=== PATIENT | male | born 2000 | race Caucasian/White ===

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

== ENCOUNTER 2018-08-09 13:18 | Emergency (ER) | payer OTHER ==
[2018-08-09 13:23] VITALS: BP 130/80; TEMP 96.6; BMI 26.2
--- NOTE | 2018-08-09 14:59 | ED.PDOC ---
General ED Provider: Dr. ARAMIS CHA Chief Complaint: Penile Problem Stated Complaint: had unprotected sex worried about std has no symptoms Time Seen by Physician: 13:19 Mode of Arrival: Walk-In Information Source: Patient Exam Limitations: No limitations Primary Care Provider: MANI MELENDEZ Nursing and Triage Documentation Reviewed and Agree: Yes Does patient meet sepsis criteria?: No System Inflammatory Response Syndrome: Not Applicable Sepsis Protocol: For patient's 13 years and over: Temp is 96.8 and below OR 101 and greater Pulse >90 BPM Resp >20/minute Acutely Altered Mental Status Are patient's symptoms suggestive of a new infection, such as: -Pneumonia -Skin, Soft Tissue -Endocarditis -UTI -Bone, Joint Infection -Implantable Device -Acute Abdominal Infection -Wound Infection -Meningitis -Blood Stream Catheter Infection -Unknown Complaint Exam - Complaint/Exam Onset/Duration: 10 days ago Current Severity: None Location of Pain: Reports: None Aggravating: Reports: None Alleviating: Reports: None Associated Signs and Symptoms: Denies: Diaphoresis, Back pain, Fever, Hematuria , Dysuria, Constipation, Blood in stool, Rectal pain, Appetite change, Nausea, Vomiting, Penile swelling, Penile discharge, Decreased urine output, Increased urine frequency, Increased thirst, Decreased activity, Lethargy, Scrotal pain, Scrotal swelling, Abdominal Pain Testicular Torsion Risk Factors: Reports: None Surgical Obstruction Risk Factors: Reports: None Related Surgical History: Reports: None Abdominal Findings: Present: None Review of Systems - Review Of Systems Constitutional: Reports: No symptoms Eyes: Reports: No symptoms Ears, Nose, Mouth, Throat: Reports: No symptoms Respiratory: Reports: No symptoms Cardiac: Reports: No symptoms GI: Reports: No symptoms : Reports: No symptoms Musculoskeletal: Reports: No symptoms Skin: Reports: No symptoms Neurological: Reports: No symptoms Endocrine: Reports: No symptoms Hematologic/Lymphatic: Reports: No symptoms All Other Systems: Reviewed and Negative Past Medical History - Past Medical History Previously Healthy: Yes Endocrine: Reports: None Cardiovascular: Reports: None Respiratory: Reports: None Hematological: Reports: None Gastrointestinal: Reports: None Genitourinary: Reports: None Neuro/Psych: Reports: None Musculoskeletal: Reports: None Cancer: Reports: None - Surgical History General Surgical History: Reports: None - Family History Family History: Reports: None - Social History Smoking Status: Never smoker Hx Substance Use: No Alcohol Screening: None Physical Exam - Physical Exam Appearance: Well-appearing, No pain distress, Well-nourished Eyes: MARIE, EOMI, Conjunctiva clear ENT: Ears normal, Nose normal, Oropharynx normal Respiratory: Airway patent, Breath sounds clear, Breath sounds equal, Respirations nonlabored Cardiovascular: RRR, Pulses normal, No rub, No murmur GI/: Soft, Nontender, No masses, Bowel sounds normal, No Organomegaly Musculoskeletal: Normal strength, ROM intact, No edema, No calf tenderness Skin: Warm, Dry, Normal color Neurological: Sensation intact, Motor intact, Reflexes intact, Cranial nerves intact, Alert, Oriented Psychiatric: Affect appropriate, Mood appropriate Critical Care Note - Critical Care Note Total Time (mins): 0 Course - Course Vital Signs: Temp Pulse Resp BP Pulse Ox 08/09/18 13:19 96.6 F L 62 18 130/80 97 Departure - Departure Time of Disposition: 14:58 Disposition: HOME SELF-CARE Discharge Problem: Normal exam Instructions: Safe Sex (ED), Sexually Transmitted Diseases (ED), Chlamydia (ED) , Trichomoniasis (ED), Molluscum Contagiosum (ED), Sexually Transmitted Diseases in Adolescents (ED), Safe Sex Practices for Adolescents (ED) Condition: Good Pt referred to PMD for follow-up: Yes IPMP verified?: No Additional Instructions: Please call your Family Physician as soon as possible to schedule a follow-up appointment. Allergies/Adverse Reactions: Allergies cefixime [From Suprax] Adverse Reaction (Verified 08/09/18 13:24) Home Medications: Ambulatory Orders 1 [No Reported Medications] 08/09/18
== END 2018-08-09 15:23 | disposition home or self-care (01) ==
LOC: ED 13:18
DX: Z11.3 Encounter for screening for infections with a predominantly sexual mode of transmission (principal)
CPT/HCPCS: 36415; 87389; 99282

== ENCOUNTER 2018-11-17 01:49 | Emergency (ER) ==
[2018-11-17 02:01] VITALS: BP 143/83; TEMP 97.6; BMI 26.7
--- NOTE | 2018-11-17 03:35 | CT ---
EXAM: CT soft tissue neck with intravenous contrast 10/21/2018. Sagittal and coronal reformatted im ages obtained HISTORY: Posterior neck mass COMPARISON: None. FINDINGS: The nasopharynx oropharynx show no acute abnormality. The parapharyngeal and retropharyng eal soft tissues appear within normal limits. The epiglottis is within normal limits. The laryngeal airway shows no acute abnormality. The trachea is widely patent and within the midline. The pulmonary apices are unremarkable. No neck mass identified. No superficial skin marker identified. The specific area of clinical estelita rn is uncertain. Small physiologic appearing lymph nodes are present throughout the neck. Small nodule likely represe nting a physiologic lymph node is present on image 42 along the left posterior aspect of the neck. C orrelate with physical examination. This may or may not correspond to the area of clinical concern. No acute osseous abnormality of the cervical spine. IMPRESSION: 1. No acute process identified within the soft tissues of the neck. 2. The airway remains widely patent and within the midline. There is no dominant mass or abscess. 3. Small physiologic appearing lymph nodes are present within both sides of the neck. Small nodule at the left posterior neck on image 42 likely represents small lymph node. The specific site of clin ical concern is uncertain. Please correlate with physical examination.
--- NOTE | 2018-11-17 03:45 | ED.PDOC ---
General ED Provider: Dr. REJI ZAMORA-ER Chief Complaint: Neck Pain Non-Injury Stated Complaint: i found a small lump Time Seen by Physician: 02:00 Mode of Arrival: Walk-In Information Source: Patient Exam Limitations: No limitations Primary Care Provider: MANI BLANCAS Nursing and Triage Documentation Reviewed and Agree: Yes Does patient meet sepsis criteria?: No System Inflammatory Response Syndrome: Not Applicable Sepsis Protocol: For patient's 13 years and over: Temp is 96.8 and below OR 101 and greater Pulse >90 BPM Resp >20/minute Acutely Altered Mental Status Are patient's symptoms suggestive of a new infection, such as: -Pneumonia -Skin, Soft Tissue -Endocarditis -UTI -Bone, Joint Infection -Implantable Device -Acute Abdominal Infection -Wound Infection -Meningitis -Blood Stream Catheter Infection -Unknown EENT Complaint Exam - Throat Complaint/Exam Onset/Duration: today Symptoms Are: Still present Timimg: Constant Initial Severity: Mild Current Severity: Mild Alleviating: Reports: None Associated Signs and Symptoms: Denies: Fever, Dysphagia, Drooling, Foreign body sensation, Chills, Cough, Wheezing, Hoarseness, Sinus discomfort, Nasal congestion, Difficulty breathing, Lethargy, Irritability, Decreased activity, Vomiting, Diarrhea, Decreased hearing, Ear drainage Uvula Midline: Yes Netta-tonsillar Fluctuence: No Scarlatinaform Rash Present: No Stridor Present: No Sinus Tenderness Present: No Tonsillar Hypertrophy Present: No Tonsillar Exudate Present: No Netta-tonsillar Swelling Present: No Adenopathy Present: Yes Splenomegaly Present: No Differential Diagnoses: Other Review of Systems - Review Of Systems Constitutional: Reports: No symptoms Eyes: Reports: No symptoms Ears, Nose, Mouth, Throat: Reports: No symptoms Respiratory: Reports: No symptoms Cardiac: Reports: No symptoms GI: Reports: No symptoms : Reports: No symptoms Musculoskeletal: Reports: Neck pain Skin: Reports: No symptoms Neurological: Reports: No symptoms Endocrine: Reports: No symptoms Hematologic/Lymphatic: Reports: No symptoms All Other Systems: Reviewed and Negative Past Medical History - Past Medical History Previously Healthy: Yes Endocrine: Reports: None Cardiovascular: Reports: None Respiratory: Reports: None Hematological: Reports: None Gastrointestinal: Reports: None Genitourinary: Reports: None Neuro/Psych: Reports: None Musculoskeletal: Reports: None Cancer: Reports: None - Surgical History General Surgical History: Reports: None - Family History Family History: Reports: None - Social History Smoking Status: Never smoker Hx Substance Use: No Alcohol Screening: None - Immunizations Tetanus Shot up to Date: Yes Physical Exam - Physical Exam Appearance: Well-appearing, No pain distress, Well-nourished Eyes: MARIE, EOMI, Conjunctiva clear ENT: Ears normal, Nose normal, Oropharynx normal Neck: Supple Respiratory: Airway patent, Breath sounds clear, Breath sounds equal, Respirations nonlabored Cardiovascular: RRR, Pulses normal, No rub, No murmur GI/: Soft Musculoskeletal: Normal strength, ROM intact, No edema, No calf tenderness Skin: Warm, Dry, Normal color Neurological: Sensation intact, Motor intact, Reflexes intact, Cranial nerves intact, Alert, Oriented Psychiatric: Affect appropriate, Mood appropriate Interpretation - Radiology Interpretation Radiology Interpretation By: Radiologist Radiology Results: Positive Exam Interpreted: CT Scan Critical Care Note - Critical Care Note Total Time (mins): 0 Course - Course Hematology/Chemistry: 11/17/18 02:17 11/17/18 02:17 Orders, Labs, Meds: Lab Review 11/17/18 11/17/18 02:17 02:17 WBC 7.24 RBC 5.54 Hgb 15.0 Hct 44.5 MCV 80.3 MCH 27.1 MCHC 33.7 RDW Coeff of Diaz 12.3 Plt Count 213 Immature Gran % (Auto) 0.3 Neut % (Auto) 51.3 Lymph % (Auto) 36.6 [place] % (Auto) 8.6 Eos % (Auto) 2.8 Baso % (Auto) 0.4 Immature Gran # (Auto) 0.0 Neut # (Auto) 3.7 Lymph # (Auto) 2.7 [place] # (Auto) 0.6 Eos # (Auto) 0.2 Baso # (Auto) 0.0 Sodium 142.2 Potassium 4.02 Chloride 101.1 Carbon Dioxide 30.5 H Anion Gap 14.62 BUN 14.0 Creatinine 0.95 Estimated GFR (MDRD) 101.00 BUN/Creatinine Ratio 14.73 Glucose 144.4 H Calcium 9.36 Total Bilirubin 0.65 AST 26.7 ALT 17.0 Alkaline Phosphatase 72.9 Total Protein 7.34 Albumin 4.72 Globulin 2.62 Albumin/Globulin Ratio 1.80 Orders Category Date Time Status NPO REMINDER: IMAGING ONCE CARE 11/17/18 02:12 Completed IV [ED IV/MEDIPORT/POWERPORT] .ONCE EMERGENCY 11/17/18 02:38 Active CBC W/ AUTO DIFF Stat LAB 11/17/18 02:17 Completed COMPREHENSIVE METABOLIC PANEL Stat LAB 11/17/18 02:17 Completed 0.9 % Sodium Chloride [Saline Flush] MEDS 11/17/18 02:38 Ordered 1 syr IVF PRN PRN CT SOFT TISSUE NECK W/CONTRAST Stat RADS 11/17/18 02:12 Completed Medications Generic Name Dose Route Start Last Admin Trade Name Freq PRN Reason Stop Dose Admin Sodium Chloride 1 syr 11/17/18 02:38 Saline Flush IVF PRN PRN To flush IV Vital Signs: Temp Pulse Resp BP Pulse Ox 11/17/18 01:53 97.6 F 66 20 143/83 H 97 Departure - Departure Time of Disposition: 03:44 Disposition: DISCH/TSF TO A [facility] Discharge Problem: Lymphadenopathy Instructions: Lymphadenopathy (ED) Condition: Good Pt referred to PMD for follow-up: No IPMP verified?: No Additional Instructions: minocin 100mg q 12hrs #20---f/u with dr blancas Allergies/Adverse Reactions: Allergies cefixime [From Suprax] Adverse Reaction (Verified 11/17/18 02:01) unknown reaction - was child Home Medications: Ambulatory Orders 1 [No Reported Medications] 08/09/18 Disposition Discussed With: Patient
== END 2018-11-17 03:50 | disposition home or self-care (01) ==
LOC: ED 01:49
DX: R59.1 Generalized enlarged lymph nodes (principal)
CPT/HCPCS: 36415; 80053; 85025; 99283

== ENCOUNTER 2018-11-29 16:39 | Outpatient (CLI) | END 2018-11-29 16:40 | disposition home or self-care (01) | LOC: RHC-LAB 16:39 → FCC-LAB 16:40 | PROVIDERS: ATTEND Nurse Practitioner Family | DX: R53.83 Other fatigue (principal); Z20.828 Contact with and (suspected) exposure to other viral communicable diseases ==